=== PATIENT | male | born 1970 | race Caucasian/White ===

== ENCOUNTER 2018-10-24 15:07 | Emergency (ER) | payer SELFPAY ==
[2018-10-24 17:31] LABS: HEMATOCRIT 25.9 % (39.0-50.0); HEMOGLOBIN 7.8 g/dl (14.0-18.0); IMMATURE GRANULOCYTES 1.2 % (0.0-5.0); MEAN CORPUSCULAR HGB CONC 30.1 g/L CALC (32.0-36.0); NEUT# 8.16 thou/uL (1.82-7.42); RED BLOOD COUNT 3.12 mill/uL (4.70-6.10); RED CELL DISTRI WIDTH 18.5 % (11.5-15.5)
[2018-10-24] MEDS ORDERED: OMEPRAZOLE20 MG PO (17:36)
[2018-10-24] MEDS ORDERED: PREDNISONE5 MG PO (17:36)
[2018-10-24 17:45] LABS: ALKALINE PHOSPHATASE 91 u/l (38-126); ANION GAP 9 (6-22 (CALC)); BILIRUBIN, TOTAL 0.3 mg/dL (0.0-1.4); BUN 8 mg/dL (9-20); BUN/CREATININE RATIO 11 (12-20 (CALC)); CARBON DIOXIDE 28 mmol/l (22-30); CHLORIDE 99 mmol/l (95-108); CREATININE 0.8 mg/dL (0.7-1.3); GFR > 60 ML/MIN (>=60 (CALC)); GFR FOR AFR.AMER. > 60 ML/MIN (>=60 (CALC)); LIPASE 80 u/l (23-300); POTASSIUM 4.2 mmol/l (3.5-5.1); SGOT/AST 28 u/l (17-59); SODIUM 132 mmol/l (137-146); TOTAL PROTEIN 4.8 g/dL (6.3-8.2)
[2018-10-24 20:15] LABS: URINE BILIRUBIN - DIPSTICK NEGATIVE (NEGATIVE); URINE BLOOD DIPSTICK NEGATIVE (NEGATIVE); URINE COLOR YELLOW; URINE GLUCOSE - DIPSTICK NEGATIVE (NEGATIVE); URINE KETONE NEGATIVE (NEGATIVE); URINE LEUK ESTERASE NEGATIVE (NEGATIVE); URINE NITRITE - DIPSTICK NEGATIVE (Negative); URINE PROTEIN - DIPSTICK NEGATIVE (NEG-TRACE); URINE UROBILINOGEN - DIPSTICK 0.2 E.U./dL (0.2)
[2018-10-24 22:17] VITALS: BP 142/87
== END 2018-10-24 22:45 | disposition short-term general hospital (02) | DRG 387 ==
LOC: ED 15:07
PROVIDERS: Family Medicine
PROC: 02HV33Z Insertion of Infusion Device into Superior Vena Cava, Percutaneous Approach (ICD-10-PCS; principal; 2018-10-24)
DX: K51.911 Ulcerative colitis, unspecified with rectal bleeding (principal); D64.9 Anemia, unspecified; R21 Rash and other nonspecific skin eruption
CPT/HCPCS: Q9967; S0164

== ENCOUNTER 2020-04-05 11:58 | Emergency (ER) | payer MEDICAID ==
[~2020-04-05] VITALS: Ht 188 cm; Wt 100.0 kg
[~2020-04-05 11:58] MED LIST: OMEPRAZOLE20 MG PO; PREDNISONE5 MG PO
[2020-04-05] MEDS ORDERED: CYCLOBENZAPR5 MG PO (13:00)
[2020-04-05] MEDS ORDERED: HYDROCO/APAP1 TA9 PO (13:00)
[2020-04-05 14:08] VITALS: BP 128/83
[2020-04-05] MEDS ORDERED: HUMIRA PEN40 MG/0.4 SC (14:12)
== END 2020-04-05 14:08 | disposition home or self-care (01) ==
LOC: ED 11:58
DX: M54.5 Low back pain (principal); K51.90 Ulcerative colitis, unspecified, without complications; F17.200 Nicotine dependence, unspecified, uncomplicated